=== PATIENT | male | born 1970 | race American Indian/Alaskan Native ===

== ENCOUNTER 2020-05-02 13:14 | Emergency (ER) | payer SELFPAY ==
[2020-05-02] MEDS ORDERED: DIPHtheria,PERTUSSIS(ACELL),TETANUS VACCINE/PF 0.5 ML VIAL IM ONE (13:19)
[2020-05-02 13:30] VITALS: BP 174/106
--- NOTE | 2020-05-02 13:58 | Emergency Department Report ---
ED Laceration HPI - HPI Chief Complaint: Wound/Laceration Stated Complaint: LEFT THUMB LAC/WORK RELATED Time Seen by Provider: 05/02/20 13:27 Tetanus Status: Not up to Date Laceration Symptoms: Yes Pain, No Foreign Body Sensation, No Numbness, No Weakness Other History: This is a 49-year-old male nontoxic, well nourished in appearance, no acute signs of distress presents to the ED with c/o of left thumb laceration that occurred this morning from a knife while at work accidentally. Patient denies decreased sensation or range of motion. Patient stated bleeding is under control. Denies any numbness, tingling, fever, chills, nausea, vomiting, chest pain, shortness of breath, headache or stiff neck. Patient denies any allergies. Past medical history acute hypertension which patient sta garry takes about 3 medication daily and has missed dose today. Patient is that he is not up-to-date with tetanus. ED Review of Systems ROS: Stated complaint: LEFT THUMB LAC/WORK RELATED Other details as noted in HPI Comment: All other systems reviewed and negative Constitutional: denies: chills, fever Eyes: denies: eye pain, eye discharge, vision change ENT: denies: ear pain, throat pain Respiratory: denies: cough, shortness of breath, wheezing Cardiovascular: denies: chest pain, palpitations Endocrine: no symptoms reported Gastrointestinal: denies: abdominal pain, nausea, diarrhea Genitourinary: denies: urgency, dysuria Musculoskeletal: denies: back pain, joint swelling, arthralgia Skin: denies: rash, lesions Neurological: denies: headache, weakness, paresthesias Psychiatric: denies: anxiety, depression Hematological/Lymphatic: denies: easy bleeding, easy bruising ED Past Medical Hx - Past Medical History Hx Hypertension: Yes Hx Pulmonary Embolism: Yes Hx Seizures: Yes - Social History Smoking Status: Never Smoker Substance Use Type: None - Medications Home Medications: Home Medications Medication Instructions Recorded Confirmed Last Taken Type Famotidine [Pepcid] 20 mg PO BID #60 tablet 05/16/14 Unknown Rx Warfarin [Coumadin] 5 mg PO QDAY #30 tablet 05/16/14 Unknown Rx levETIRAcetam [Keppra] 500 mg PO BID #60 tablet 05/16/14 Unknown Rx Laceration Physical Exam - Exam General: Vital signs noted. No distress. Alert and acting appropriately. Wound Length (cm): 1 (Left thumb superficial) Laceration Location: Upper Extremity Laceration Exam: Yes Normal Distal CMS, No Foreign Body, No Exposed Tendon, V essel, or Nerve, No Tendon Injury ED Course Vital Signs 05/02/20 05/02/20 13:17 13:29 Temperature 97.6 F Pulse Rate 90 Respiratory 20 Rate Blood Pressure 180/125 Blood Pressure 174/106 [Right] O2 Sat by Pulse 96 Oximetry - Reevaluation(s) Reevaluation #1: 05/02/20 13:55 Patient is speaking in full sentences with no signs of distress noted. - Laceration /Wound Repair Left Finger Wound Location: upper extremity (Left thumb) Wound Length (cm): 1 Wound's Depth, Shape: superficial Wound Explored: clean Irrigated w/ Saline (ccs): 40 Betadine Prep?: Yes Wound Repaired With: Dermabond Layer Closure?: No Sterile Dressing Applied?: Yes Progress: Under sterile field, I used Betadine to clean the area. I then used 40 mL of normal saline to flush the area. Dermabond applied to the laceration. I then applied a sterile 4 x 4 with tape. Minimal bleeding noted but is under control. Patient tolerated procedure well with no signs of distress. ED Medical Decision Making - Medical Decision Making This is a 49-year-old male that presents with laceration. Patient is stable and was examined by me. Dermabond applied and patient tolerated well. A sterile dressing has been applied. Patient was educated on proper wound care. Patient was instructed to refer to Follow-up with a primary care doctor in 3-5 days or if symptoms worsen and continue return to emergency room as soon as possible. At time of discharge, the patient does not seem toxic or ill in appearance. No acute signs of distress noted. Patient agrees to discharge treatment plan of care. No further questions noted by the patient. According to ACEP: (1) in ED patients with asymptomatic markedly elevated blood pressure, routine screening for acute target organ injury (eg, serum creatinine, urinalysis, ECG) is not required. (1) In patients with asymptomatic markedly elevated blood pressure, routine ED medical intervention is not required. Critical care attestation.: If time is entered above; I have spent that time in minutes in the direct care of this critically ill patient, excluding procedure time. ED Disposition Clinical Impression: Laceration of left thumb Qualifiers: Encounter type: initial encounter Damage to nail status: without damage Foreign body presence: without foreign body Qualified Code(s): S61.012A - Laceration without foreign body of left thumb without damage to nail, initial encounter Disposition: - TO HOME OR SELFCARE Is pt being admited?: No Does the pt Need Aspirin: No Condition: Stable Instructions: Laceration Care, Adult Additional Instructions: Follow-up with a primary care doctor in 3-5 days or if symptoms worsen and continue return to emergency room as soon as possible. Referrals: PRIMARY CAREMD [Referring] - 3-5 Days STEVE PICKERING MD [Staff Physician] - 3-5 Days Forms: Work/School Release Form(ED) Time of Disposition: 13:57
== END 2020-05-02 14:43 | disposition home or self-care (01) ==
LOC: ED 13:14
DX: S61.012A Laceration without foreign body of left thumb without damage to nail, initial encounter (principal); I10 Essential (primary) hypertension; Z86.69 Personal history of other diseases of the nervous system and sense organs; Z79.899 Other long term (current) drug therapy; W26.0XXA Contact with knife, initial encounter; Y93.89 Activity, other specified; Y92.89 Other specified places as the place of occurrence of the external cause; Y99.0 Civilian activity done for income or pay
CPT/HCPCS: 90471; 90715

== ENCOUNTER 2020-05-08 11:59 | Emergency (ER) | payer SELFPAY ==
--- NOTE | 2020-05-08 12:24 | Emergency Department Report ---
ED Chest Pain HPI - General Stated Complaint: CHEST PAIN Time Seen by Provider: 05/08/20 12:06 Source: patient, EMS - History of Present Illness Initial Comments: 49-year-old male, history of hypertension, seizure disorder, prediabetes, PE, alcohol abuse, presents to ED with chest pain. Patient reports onset of chest pain approximately 2 to 3 days ago. States pain is located in the left chest, sharp in nature, radiating into the left shoulder. Patient denies any associated nausea or vomiting. He reports some shortness of breath as well. He denies any cough or fever. Patient states he has been noncompliant with all his medications for the last 2 months secondary to switching jobs and not having any insurance currently. Patient states he is supposed to be on Eliquis for his history of PE. Patient was at work this morning when he called EMS for his chest pain. Patient was given aspirin and sublingual nitro en route. Patient states his pain is currently improved. He denies any tobacco or drug use. Patient denies any alcohol use today. MD Complaint: chest pain -: days(s) (3) Onset: during rest Pain Location: left chest Pain Radiation: LUE Severity: moderate Quality: sharp Consistency: constant Improves With: nothing Worsens With: nothing re: dyspnea. denies: nausea, vomting, diaphoresis Other Symptoms: denies: cough, fever, leg swelling Treatments Prior to Arrival: aspirin, nitroglycerin - Related Data Previous Rx's Medication Instructions Recorded Last Taken Type Warfarin [Coumadin] 5 mg PO QDAY #30 tablet 05/16/14 Unknown Rx levETIRAcetam [Keppra] 500 mg PO BID #60 tablet 05/16/14 Unknown Rx Allergies Allergy/AdvReac Type Severity Reaction Status Date / Time No Known Allergies Allergy Verified 05/08/20 12:41 Heart Score - HEART Score History: Slightly suspicious EKG: Non-specific Age: 45-65 Risk factors: 1-2 risk factors Troponin: < normal limit HEART Score: 3 ED Review of Systems ROS: Stated complaint: STEMI Other details as noted in HPI Comment: All other systems reviewed and negative Constitutional: denies: fever Respiratory: shortness of breath. denies: cough Cardiovascular: chest pain Gastrointestinal: denies: nausea, vomiting Musculoskeletal: other (Denies any leg pain or swelling) ED Past Medical Hx - Past Medical History Hx Hypertension: Yes Hx Pulmonary Embolism: Yes Hx Seizures: Yes - Social History Smoking Status: Never Smoker Substance Use Type: None - Medications Home Medications: Home Medications Medication Instructions Recorded Confirmed Last Taken Type Warfarin [Coumadin] 5 mg PO QDAY #30 tablet 05/16/14 05/08/20 Unknown Rx levETIRAcetam [Keppra] 500 mg PO BID #60 tablet 05/16/14 05/08/20 Unknown Rx ED Physical Exam - General General appearance: alert, in no apparent distress, appears intoxicated - Head Head exam: Present: atraumatic, normocephalic - Eye Eye exam: Present: normal appearance, EOMI - ENT ENT exam: Present: mucous membranes moist - Neck Neck exam: Present: normal inspection - Respiratory Respiratory exam: Present: normal lung sounds bilaterally. Absent: respiratory distress - Cardiovascular Cardiovascular Exam: Present: regular rate, normal rhythm - GI/Abdominal GI/Abdominal exam: Present: soft. Absent: distended, tenderness - Extremities Exam Extremities exam: Present: normal inspection. Absent: pedal edema, calf tenderness - Neurological Exam Neurological exam: Present: alert, oriented X3 - Psychiatric Psychiatric exam: Present: normal affect, normal mood - Skin Skin exam: Present: warm, dry, intact, normal color ED Course Vital Signs 05/08/20 05/08/20 05/08/20 12:00 13:30 15:00 Temperature 97.6 F Pulse Rate 76 56 L 56 L Respiratory 18 18 17 Rate Blood Pressure 133/86 Blood Pressure 113/77 137/99 [Left] O2 Sat by Pulse 96 99 100 Oximetry 05/08/20 15:58 Temperature Pulse Rate 62 Respiratory 17 Rate Blood Pressure Blood Pressure 138/97 [Left] O2 Sat by Pulse 98 Oximetry CESAR score - Cesar Score Age > 65: (0) No Aspirin use within the Past 7 Days: (0) No 3 or more CAD Risk Factors: (0) No 2 or more Angina events in past 24 hrs: (0) No Known CAD with more than 50% Stenosis: (0) No Elevated Cardiac Markers: (0) No ST Deviation Greater than 0.5mm: (0) No CESAR Score: 0 ED Medical Decision Making - Lab Data Result diagrams: 05/08/20 12:28 05/08/20 12:28 - EKG Data -: EKG Interpreted by Me EKG shows normal: sinus rhythm, axis, intervals, QRS complexes Rate: normal - EKG Data Interpretation: LVH, other (T wave inversions present in lateral leads) - Radiology Data Radiology results: report reviewed, image reviewed - Medical Decision Making 49-year-old male presents to ED with chest pain. Patient found to be intoxicated with alcohol level of 310. Patient no further complaints of chest pain since his initial arrival. EKG did not show any acute ST changes. Tropon in negative x3. Vital signs are stable. Patient reported history of PE, however CTA is negative today for any acute findings. Patient has been observed in the ED for greater than 6 hours. He is currently clinically sober at this time. Patient has ambulated back and forth to the bathroom. Gait is steady. Speech is clear and direct. Will discharge at this time. Advised outpatient follow-up. Return precautions given. Critical care attestation.: If time is entered above; I have spent that time in minutes in the direct care of this critically ill patient, excluding procedure time. ED Disposition Clinical Impression: Chest pain, Alcohol intoxication Disposition: - TO HOME OR SELFCARE Is pt being admited?: No Condition: Stable Instructions: Alcohol Intoxication, Nonspecific Chest Pain, Adult, [id number], Chest Pain (ED) Referrals: PRIMARY CARE, [Primary Care Provider] - 3-5 Days [facility] [Provider Group] - 3-5 Days [facility] [Outside] - 3-5 Days Time of Disposition: 19:00
[2020-05-08] MEDS ORDERED: ONDANSETRON 4 MG/2 ML INJ ONE (12:30)
[2020-05-08] MEDS ORDERED: MORPHINE 4 MG/1 ML INJ ONE (12:30)
[2020-05-08] MEDS ORDERED: ONDANSETRON 4 MG/2 ML INJ IV ONE (12:31)
[2020-05-08] MEDS ORDERED: MORPHINE 2 MG/1 ML INJ IV ONE (12:31)
--- NOTE | 2020-05-08 12:34 | XRay Report ---
CHEST 1 VIEW INDICATION: chest pain. COMPARISON: None. FINDINGS: Support devices: None. Heart: Normal. Lungs/Pleura: No acute pulmonary or pleural findings. Chronic right AC separation is noted. IMPRESSION: 1. No acute findings. Signer Name: Wolf Luna MD Signed: 05/08/2020 12:29 PM Workstation Name: [id number]
[2020-05-08 13:08] LABS: BUN/Creatinine Ratio 16; Blood Urea Nitrogen 16 mg/dL (9-20); Calcium 8.6 mg/dL (8.4-10.2); Hemolysis Index 5
[2020-05-08 13:15] LABS: Basophils % (Auto) 0.7 % (0.0-1.8); Eosinophils # (Auto) 0.1 K/mm3 (0.0-0.4); Eosinophils % (Auto) 2.3 % (0.0-4.3); Hematocrit 34.3 % (35.5-45.6); Hemoglobin 11.4 gm/dl (11.8-15.2); Lymphocytes # (Auto) 1.7 K/mm3 (1.2-5.4); Lymphocytes % (Auto) 36.4 % (13.4-35.0); Mean Corpuscular HGB Conc 33 % (32-34); Mean Corpuscular Volume 94 fl (84-94); Monocytes # (Auto) 0.4 K/mm3 (0.0-0.8); Monocytes % (Auto) 8.5 % (0.0-7.3); Platelet Count 283 K/mm3 (140-440); Red Blood Count 3.66 M/mm3 (3.65-5.03); Red Cell Distribution Width 17.2 % (13.2-15.2)
[2020-05-08 13:26] LABS: Partial Thromboplastin Time 29.6 Sec. (24.2-36.6)
--- NOTE | 2020-05-08 14:44 | Cat Scan Report ---
CTA CHEST WITH IV CONTRAST INDICATION: Chest pain TECHNIQUE: Axial CT images were obtained through the chest after injection of IV contrast. Coronal oblique 2-D reconstruction images were produced. 3 plane MIP reconstruction images were produced at an [employer] workstation. All CTs at this facility utilize dose reduction techniques including automated expos ure control, iterative reconstruction and weight based dosing when appropriate to reduce patient radi ation dose to as low as reasonable achievable. COMPARISON: Chest radiograph, 05/08/2020 FINDINGS: No filling defects are visualized within the central or segmental pulmonary arteries to suggest pulmo nary embolism. The heart is mildly enlarged. The thoracic aorta appears normal in caliber. Evaluation of the lung parenchyma demonstrates no focal airspace disease or pleural effusion. Limited imaging of the upper abdomen demonstrates no focal abnormality. Bones and soft tissues: Evaluation of bony structures demonstrates no acute bony abnormality. Soft ti ssue structures appear grossly normal. IMPRESSION: 1. No evidence of pulmonary embolism or acute parenchymal process. 2. Mild cardiomegaly. Signer Name: Laurie Bolton MD Signed: 05/08/2020 2:39 PM Workstation Name: [id number]
[2020-05-08 19:16] VITALS: BP 165/114
== END 2020-05-08 19:16 | disposition home or self-care (01) ==
LOC: ED 11:59
DX: F10.929 Alcohol use, unspecified with intoxication, unspecified (principal); R07.9 Chest pain, unspecified; I10 Essential (primary) hypertension; Z79.899 Other long term (current) drug therapy; Z86.69 Personal history of other diseases of the nervous system and sense organs
CPT/HCPCS: 36415; 71045; 71275; 80048; 84484; 85025; 85379; 85610; 85730; 93005; 96374; 96375; 99285; J2270; J2405; Q9967; 80320; G0480